=== PATIENT | male | born 1985 | race American Indian/Alaskan Native ===

== ENCOUNTER 2019-12-25 19:45 | Inpatient (IN) | payer OTHER ==
[2019-12-25 20:58] LABS: Basophils % (Auto) 0.4 % (0.0-1.8); Hematocrit 48.5 % (35.5-45.6); Hemoglobin 16.3 gm/dl (11.8-15.2); Lymphocytes # (Auto) 0.9 K/mm3 (1.2-5.4); Lymphocytes % (Auto) 14.9 % (13.4-35.0); Mean Corpuscular HGB Conc 34 % (32-34); Mean Corpuscular Volume 85 fl (84-94); Monocytes # (Auto) 0.3 K/mm3 (0.0-0.8); Monocytes % (Auto) 5.6 % (0.0-7.3); Platelet Count 188 K/mm3 (140-440); Red Cell Distribution Width 13.1 % (13.2-15.2)
--- NOTE | 2019-12-25 21:02 | Emergency Department Report ---
HPI - General Chief Complaint: Fever Time Seen by Provider: 12/25/19 19:57 - HPI HPI: 34-year-old -[place] male presents to the emergency department via EMS from home with a complaint of a dry cough, shortness of breath, intermittent fever that is been going on for the past 1 week. The patient went to see his primary care physician through [facility] last Thursday, 6 days ago, and was diagnosed with pneumonia. He was placed on antibiotics which he has been taking compliantly. However his symptoms have worsened. Patient was found to have a pulse ox of 88% on room air with EMS. He was placed on nasal cannula and brought in to be seen. He denies any cigarette use but occasionally will smoke hookah. He has a past medical history of asthma. No known contacts with any Covid-19 positive people but the patient works for the [employer] and comes into contact with people all day. No recent travel. No sick contacts at home. ED Past Medical Hx - Past Medical History Previous Medical History?: Yes Hx Asthma: Yes - Social History Smoking Status: Never Smoker Substance Use Type: None - Medications Home Medications: Home Medications Medication Instructions Recorded Confirmed Last Taken Type No Known Home Medications [No 12/26/19 12/26/19 Unknown History Reported Home Medications] ED Review of Systems ROS: Stated complaint: JOJO,FEVER,COUGH Other details as noted in HPI Constitutional: chills, fever Eyes: denies: eye pain, vision change ENT: denies: ear pain, throat pain Respiratory: cough, shortness of breath Cardiovascular: denies: chest pain, palpitations Gastrointestinal: denies: abdominal pain, vomiting Genitourinary: denies: dysuria, discharge Musculoskeletal: myalgia. denies: joint swelling Skin: denies: rash, lesions Neurological: denies: weakness, numbness Physical Exam - Physical Exam Vital Signs: Vital Signs 12/25/19 12/25/19 12/25/19 20:03 20:04 20:15 Temperature 99.6 F 100.0 F H Pulse Rate 97 H 99 H 103 H Respiratory 30 H 36 H 33 H Rate Blood Pressure 123/72 [Right] O2 Sat by Pulse 97 97 96 Oximetry 12/25/19 20:31 Temperature Pulse Rate 97 H Respiratory 27 H Rate Blood Pressure [Right] O2 Sat by Pulse 96 Oximetry Physical Exam: GENERAL: The patient is well-developed well-nourished. HENT: Normocephalic. Atraumatic. Patient has moist mucous membranes. EYES: Extraocular motions are intact. NECK: Supple. Trachea is midline. CHEST/LUNGS: Rhonchi heard to the bilateral lung aguilera. There is some tachypnea but no accessory muscle use. HEART/CARDIOVASCULAR: Regular. There is no tachycardia. There is no murmur. ABDOMEN: Abdomen is soft, nontender. Patient has normal bowel sounds. There is no abdominal distention. SKIN: Skin is warm and dry. NEURO: The patient is awake, alert, and oriented. The patient is cooperative. The patient has no focal neurologic deficits. Normal speech. MUSCULOSKELETAL: There is no tenderness or deformity. There is no evidence of acute injury. ED Course Vital Signs 12/25/19 12/25/19 12/25/19 20:03 20:04 20:15 Temperature 99.6 F 100.0 F H Pulse Rate 97 H 99 H 103 H Respiratory 30 H 36 H 33 H Rate Blood Pressure 123/72 [Right] O2 Sat by Pulse 97 97 96 Oximetry 12/25/19 20:31 Temperature Pulse Rate 97 H Respiratory 27 H Rate Blood Pressure [Right] O2 Sat by Pulse 96 Oximetry - Consultations Consultation #1: 12/25/19 22:53 I did speak with Dr[address] Jfefery at the [facility]. She has given permission for the patient to be admitted to our facility. ED Medical Decision Making - Lab Data Result diagrams: 12/26/19 11:35 12/26/19 11:35 - EKG Data -: EKG Interpreted by Ks EKG shows normal: sinus rhythm, axis, intervals, QRS complexes, ST-T waves Rate: normal - EKG Data When compared to previous EKG there are: previous EKG unavailable Interpretation: normal EKG - Radiology Data Radiology results: image reviewed interpreted by me: Chest x-ray shows bilateral groundglass opacities concerning for pneumonia. - Medical Decision Making This patient presents to the emergency department with a low-grade fever, some h ypoxia and progressively worsening shortness of breath after he was diagnosed with pneumonia 6 days ago through his PCP at [facility]. The patient has been taking his antibiotics compliantly. EKG did not show any signs of ST elevation AK or dysrhythmia. Chest x-ray shows bilateral groundglass opacities concerning for pneumonia. His labs thus far have been unremarkable including no leukocytosis, but the patient does have some lymphopenia. Rapid flu is pending. He was given some IV fluid resuscitation and started on some antibiotics and blood cultures have been sent. Given the patient's presentation, the lymphopenia without leukocytosis, and the x-ray findings, the patient has high suspicion for Covid-19. The survey has been filled out for the Department of Health to see if this patient will be tested for the novel coronavirus. The patient did have a pulse ox of about 92 to 93% on room air but goes up to 96 to 97% with 2 L nasal cannula. Patient will be admitted to the hospital for further evaluation and treatment and was accepted for admission by the hospitalist, Dr. Guadalupe. - Differential Diagnosis Covid-19, Community aquired pneumonia, Viral URI, Bronchitis Critical Care Time: Yes Critical care time in (mins) excluding proc time.: 31 Critical care attestation.: If time is entered above; I have spent that time in minutes in the direct care of this critically ill patient, excluding procedure time. Critical care time spent on this patient in doing his initial evaluation, multiple re-evaluations, ordering and interpretation of labs and imaging, treatment with IV fluid resuscitation and IV antibiotics. Critical Care Time: 31 minutes ED Disposition Clinical Impression: Hypoxia, Suspected 2019 novel coronavirus infection Bilateral pneumonia Qualifiers: Pneumonia type: due to unspecified organism Lung location: unspecified part of lung Qualified Code(s): J18.9 - Pneumonia, unspecified organism Dyspnea Qualifiers: Dyspnea type: shortness of breath Qualified Code(s): R06.02 - Shortness of breath Disposition: 09 OP ADMIT IP TO THIS HOSP Is pt being admited?: Yes Condition: Serious Time of Disposition: 21:44
[2019-12-25 21:07] LABS: INR 1.06 (0.87-1.13)
[2019-12-25] MEDS ORDERED: AZITHROMYCIN 500 MG in SODIUM CHLORIDE 0.9% 250ML 250 ML IV ONE (21:10)
[2019-12-25] MEDS ORDERED: cefTRIAXone/NS 1 GM/50 ML 1 GM/50 ML BAG IV ONE (21:10)
[2019-12-25 21:12] LABS: BUN/Creatinine Ratio 9; Blood Urea Nitrogen 13 mg/dL (9-20); Calcium 8.5 mg/dL (8.4-10.2); Hemolysis Index 15
--- NOTE | 2019-12-25 21:21 | XRay Report ---
CHEST 1 VIEW INDICATION / CLINICAL INFORMATION: Dyspnea. COMPARISON: None available. FINDINGS: SUPPORT DEVICES: None. HEART / MEDIASTINUM: No significant abnormality. LUNGS / PLEURA: Patchy bilateral airspace opacities with basilar predominance. No pleural fluid. No p neumothorax. IMPRESSION: Bilateral airspace opacities are suggestive of pneumonia. Signer Name: Tushar Che MD Signed: 12/25/2019 9:17 PM Workstation Name: [id number]
[2019-12-25] MEDS ORDERED: ACETAMINOPHEN 325 MG TAB PO ONE (21:27)
[2019-12-25] MEDS ORDERED: ACETAMINOPHEN 325 MG TAB PO PRN (23:44)
[2019-12-25] MEDS ORDERED: MAGNESIUM HYDROXIDE (MOM) ORAL LIQD UDC PO PRN (23:44)
[2019-12-25] MEDS ORDERED: ONDANSETRON 4 MG/2 ML INJ IV PRN (23:44)
--- NOTE | 2019-12-26 00:35 | History and Physical Report ---
History of Present Illness Date of examination: 12/25/19 Date of admission: 12/25/19 21:45 Chief complaint: Fever Cough Shortness of Breath History of present illness: 34-year-old male presenting to the emergency room today complaining of cough and fever which has been ongoing for about 1 week. He was seen on outpatient basis about 6 days ago at [facility] and was diagnosed with pneumonia. Patient was not placed on hospital admission. 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 He has been having generalized aches and pain, denies any chest pain. He has had some nausea but no vomiting. No abdominal pain. Upon arrival in the emergency room patient was found to be hypoxic with O2 saturation in the upper 80s. Work-up reveals bilateral pneumonia. He has been commenced on empiric IV antibiotics. Past History Past Medical History: other (H/O Asthma) Past Surgical History: No surgical history Social history: no significant social history Medications and Allergies Allergies Allergy/AdvReac Type Severity Reaction Status Date / Time No Known Allergies Allergy Unverified 12/25/19 22:07 Active Meds: Active Medications Acetaminophen (Tylenol) 650 mg PO Q4H PRN PRN Reason: Pain MILD(1-3)/Fever >100.5/SRIVASTAVA Sodium Chloride (Nacl 0.9% 1000 Ml) 1,000 mls @ 125 mls/hr IV DIRECT HUSSEIN Ceftriaxone Sodium (Rocephin/Ns 2 Gm/100 Ml) 2 gm in 100 mls @ 200 mls/hr IV Q24HR HUSSEIN; Protocol Azithromycin 500 mg/ Sodium (Chloride) 250 mls @ 250 mls/hr IV Q24HR HUSSEIN; Protocol Magnesium Hydroxide (Milk Of Magnesia) 30 ml PO Q4H PRN PRN Reason: Constipation Morphine Sulfate (Morphine) 2 mg IV Q4H PRN PRN Reason: Pain, Moderate (4-6) Ondansetron HCl (Zofran) 4 mg IV Q8H PRN PRN Reason: Nausea And Vomiting Sodium Chloride (Sodium Chloride Flush Syringe 10 Ml) 10 ml IV BID HUSSEIN Sodium Chloride (Sodium Chloride Flush Syringe 10 Ml) 10 ml IV PRN PRN PRN Reason: LINE FLUSH Review of Systems Constitutional: no fever, no chills Cardiovascular: no chest pain, no palpitations Respiratory: cough, cough with sputum, shortness of breath Gastrointestinal: nausea, vomiting, no diarrhea Genitourinary Male: no dysuria, no hematuria Musculoskeletal: no neck pain, no low back pain Neurological: no headaches, no confusion Exam - Constitutional Vitals: Temp Pulse Resp BP Pulse Ox 98.7 F 85 29 H 120/66 96 12/25/19 22:53 12/25/19 23:45 12/25/19 23:45 12/25/19 23:45 12/25/19 23:45 General appearance: Present: no acute distress, well-nourished - EENT Eyes: Present: PERRL, EOM intact ENT: hearing intact, clear oral mucosa, dentition normal - Neck Neck: Present: supple, normal ROM - Respiratory Respiratory effort: normal Respiratory: bilateral: diminished - Cardiovascular Rhythm: regular Heart Sounds: Present: S1 & S2 - Extremities Extremities: no ischemia, pulses intact, pulses symmetrical, No edema, Full ROM Peripheral Pulses: within normal limits - Abdominal General gastrointestinal: Present: soft, non-tender, non-distended - Integumentary Integumentary: Present: clear, warm, dry - Musculoskeletal Musculoskeletal: strength equal bilaterally - Psychiatric Psychiatric: appropriate mood/affect, intact judgment & insight, cooperative - Neurologic Neurologic: CNII-XII intact, moves all extremities Results - Labs CBC & Chem 7: 12/25/19 20:32 12/25/19 20:32 Labs: Abnormal lab results 12/25/19 12/25/19 Range/Units 20:32 20:32 RBC 5.70 H (3.65-5.03) M/mm3 Hgb 16.3 H (11.8-15.2) gm/dl Hct 48.5 H (35.5-45.6) % RDW 13.1 L (13.2-15.2) % Lymph # 0.9 L (1.2-5.4) K/mm3 Seg Neutrophils % 79.1 H (40.0-70.0) % Sodium 130 L (137-145) mmol/L Chloride 92.6 L (98-107) mmol/L Carbon Dioxide 20 L (22-30) mmol/L Glucose 113 H (75-100) mg/dL Assessment and Plan - Patient Problems (1) Bilateral pneumonia Current Visit: Yes Status: Acute Qualifiers: Pneumonia type: due to unspecified organism Lung location: unspecified part of lung Qualified Code(s): J18.9 - Pneumonia, unspecified organism Plan to address problem: Placed on empiric IV antibiotics. We await blood culture results (2) Hypoxia Current Visit: Yes Status: Acute Plan to address problem: Possibly secondary to the pneumonia. Will keep O2 saturation greater or equal to 92% (3) Suspected 2019 novel coronavirus infection Current Visit: Yes Status: Acute Plan to address problem: Consult placed to Infectious disease for evaluation and recommendation. Meanwhile continue on I/V antibiotics for pneumonia. (4) DVT prophylaxis Current Visit: Yes Status: Acute Plan to address problem: Patient placed on subcutaneous heparin (5) Full code status Current Visit: Yes Status: Acute
[2019-12-26] MEDS: SODIUM CHLORIDE 0.9% 1000 ML 1,000 ML IV SCH ×2 (02:36→09:46)
[2019-12-26] MEDS: HEPARIN 5,000 UNIT/1 ML VIAL SUB-Q SCH ×3 (05:50→21:50)
[2019-12-26] MEDS: MORPHINE 2 MG/1 ML INJ IV PRN ×3 (05:58→18:14)
[2019-12-26] MEDS: AZITHROMYCIN 500 MG in SODIUM CHLORIDE 0.9% 250ML 250 ML IV SCH (09:34)
[2019-12-26] MEDS: cefTRIAXone/NS 2 GM/100 ML 2 GM/100 ML BAG IV SCH (09:35)
[2019-12-26 12:05] LABS: Basophils % (Auto) 0.2 % (0.0-1.8); Hematocrit 45.3 % (35.5-45.6); Hemoglobin 15.2 gm/dl (11.8-15.2); Lymphocytes # (Auto) 1.2 K/mm3 (1.2-5.4); Lymphocytes % (Auto) 24.1 % (13.4-35.0); Mean Corpuscular HGB Conc 34 % (32-34); Mean Corpuscular Volume 85 fl (84-94); Monocytes # (Auto) 0.4 K/mm3 (0.0-0.8); Monocytes % (Auto) 7.6 % (0.0-7.3); Platelet Count 196 K/mm3 (140-440); Red Blood Count 5.33 M/mm3 (3.65-5.03); Red Cell Distribution Width 13.3 % (13.2-15.2)
[2019-12-26 12:13] LABS: INR 1.03 (0.87-1.13)
[2019-12-26 12:14] LABS: Partial Thromboplastin Time 33.2 Sec. (24.2-36.6)
[2019-12-26 12:24] LABS: BUN/Creatinine Ratio 8; Blood Urea Nitrogen 13 mg/dL (9-20); Calcium 8.1 mg/dL (8.4-10.2); Hemolysis Index 12
--- NOTE | 2019-12-26 14:18 | Consultation ---
History of Present Illness - Reason for Consult Consult date: 12/26/19 - History of Present Illness 34-year-old man past medical history of asthma admitted to the hospital with complaints of fevers and cough. He notes this began approximately a week prior to admission, and was seen as an outpatient at [facility] 6 days prior. At that time he was diagnosed with pneumonia, and was sent home. He complains of associated myalgias and nausea, but denied any vomiting and diarrhea. He was found to be mildly hypoxic in the emergency room, and was admitted. 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 Afebrile since admission with a normal white count and associated lymphopenia. He is currently receiving ceftriaxone and azithromycin. His influenza serologies are negative. Blood cultures are currently pending. Imaging personally reviewed: Chest x-ray: Bilateral airspace opacities. Review of Systems: Bold if positive, otherwise negative General: fevers, chills, rigors HEENT: visual disturbance, diplopia, eye pain Respiratory: cough, sputum, hemoptysis, shortness of breath Cardiovascular: chest pain, syncope Gastrointestinal: nausea, vomiting, diarrhea, abdominal pain Genitourinary: dysuria, hematuria, flank pain Musculoskeletal: neck pain, back pain, joint pain, edema Neurologic: headaches, seizures Hematologic: easy bruising or bleeding Endocrine: night sweats, acute weight loss Skin: rash, jaundice, redness Psychiatric: suicidal, homicidal ideation Past History Past Medical History: other (H/O Asthma) Past Surgical History: No surgical history Social history: no significant social history Medications and Allergies Allergies Allergy/AdvReac Type Severity Reaction Status Date / Time No Known Allergies Allergy Unverified 12/25/19 22:07 Home Medications Medication Instructions Recorded Confirmed Last Taken Type No Known Home Medications [No 12/26/19 12/26/19 Unknown History Reported Home Medications] Active Meds: Active Medications Acetaminophen (Tylenol) 650 mg PO Q4H PRN PRN Reason: Pain MILD(1-3)/Fever >100.5/SRIVASTAVA Heparin Sodium (Porcine) (Heparin) 5,000 unit SUB-Q Q8HR HUSSEIN Last Admin: 12/26/19 13:21 Dose: Not Given Documented by: Sodium Chloride (Nacl 0.9% 1000 Ml) 1,000 mls @ 125 mls/hr IV DIRECT HUSSEIN Last Admin: 12/26/19 09:46 Dose: 125 mls/hr Documented by: Ceftriaxone Sodium (Rocephin/Ns 2 Gm/100 Ml) 2 gm in 100 mls @ 200 mls/hr IV Q24HR HUSSEIN; Protocol Last Admin: 12/26/19 09:35 Dose: 200 mls/hr Documented by: Azithromycin 500 mg/ Sodium (Chloride) 250 mls @ 250 mls/hr IV Q24HR HUSSEIN; Protocol Last Admin: 12/26/19 09:34 Dose: 250 mls/hr Documented by: Magnesium Hydroxide (Milk Of Magnesia) 30 ml PO Q4H PRN PRN Reason: Constipation Morphine Sulfate (Morphine) 2 mg IV Q4H PRN PRN Reason: Pain, Moderate (4-6) Last Admin: 12/26/19 10:43 Dose: 2 mg Documented by: Ondansetron HCl (Zofran) 4 mg IV Q8H PRN PRN Reason: Nausea And Vomiting Sodium Chloride (Sodium Chloride Flush Syringe 10 Ml) 10 ml IV BID HUSSEIN Last Admin: 12/26/19 09:35 Dose: 10 ml Documented by: Sodium Chloride (Sodium Chloride Flush Syringe 10 Ml) 10 ml IV PRN PRN PRN Reason: LINE FLUSH Physical Examination - Physical Exam Narrative exam: Physical Exam: Constitutional: Alert, cooperative. No acute distress Head, Ears, Nose: Normocephalic, atraumatic. External ears, nose normal Eyes: Conjunctivae/corneas clear. No icterus. No ptosis. Neck: Supple, no meningeal signs Oral: dentition fair, no thrush Cardiovascular: S1, S2 normal. Respiratory: Mild bilateral rhonchi GI: Soft, non-tender; bowel sounds normal. No peritoneal signs. Musculoskeletal: No pedal edema, no cyanosis. Skin: No rash or abscess Hem/Lymphatic: No palpable cervical or supraclavicular nodes. No lymphangitis Psych: Mood ok. Affect normal Neurological: Awake, alert, oriented. No gross abnormality - Constitutional Vitals: Vital Signs Temp Pulse Resp BP Pulse Ox 99.7 F H 83 20 112/66 93 12/26/19 12:06 12/26/19 12:06 12/26/19 12:06 12/26/19 12:06 12/26/19 12:06 Temperature -Last 24 Hours Temperature 99.7 F Temperature 98.9 F Temperature 98.7 F Temperature 100.0 F Temperature 99.6 F Results - Labs CBC & Chem 7: 12/26/19 11:35 12/26/19 11:35 Labs: Abnormal lab results 12/25/19 12/25/19 12/26/19 Range/Units 20:32 20:32 11:35 RBC 5.70 H 5.33 H (3.65-5.03) M/mm3 Hgb 16.3 H (11.8-15.2) gm/dl Hct 48.5 H (35.5-45.6) % RDW 13.1 L (13.2-15.2) % [place] % (Auto) 7.6 H (0.0-7.3) % Lymph # 0.9 L (1.2-5.4) K/mm3 Seg Neutrophils % 79.1 H (40.0-70.0) % Sodium 130 L (137-145) mmol/L Chloride 92.6 L (98-107) mmol/L Carbon Dioxide 20 L (22-30) mmol/L Creatinine (0.8-1.5) mg/dL Glucose 113 H (75-100) mg/dL Calcium (8.4-10.2) mg/dL 12/26/19 Range/Units 11:35 RBC (3.65-5.03) M/mm3 Hgb (11.8-15.2) gm/dl Hct (35.5-45.6) % RDW (13.2-15.2) % [place] % (Auto) (0.0-7.3) % Lymph # (1.2-5.4) K/mm3 Seg Neutrophils % (40.0-70.0) % Sodium 132 L (137-145) mmol/L Chloride 95.7 L (98-107) mmol/L Carbon Dioxide (22-30) mmol/L Creatinine 1.6 H (0.8-1.5) mg/dL Glucose 103 H (75-100) mg/dL Calcium 8.1 L (8.4-10.2) mg/dL Assessment and Plan Cultures: Blood culture 12/25/2019 blood cultures no growth to date A/P: 34-year-old man past medical history asthma admitted to the hospital with pneumonia and concern for COVID-19. #COVID-19 rule out: Survey filled out by emergency room, follow-up testing and results. Continue empiric antibiotics for now with ceftriaxone and azithromycin. Patient was symptoms nonresponsive to antibiotics with a normal white count with lymphopenia, and bilateral disease yields concern for COVID-19 #Bilateral pneumonia: Order procalcitonin for a.m. labs. #Asthma: Pulmonary comorbidity increases risk factors for severe COVID-19 disease, as such monitor closely. Recs: -Continue empiric ceftriaxone and azithromycin -Ordered procalcitonin for morning labs -Follow-up code testing from department of health - Patient may be discharged when medically stable if testing swabs have been obt ained. Upon discharge patient should self-quarantine at home until COVID testing returns. If negative, self-quarantine may end. If positive patient should self- quarantine for 14 days from symptom beginning. Public health and infection prevention will follow up with patients to notify them of their test results. Patients should return to hospital regardless if they have worsening fevers or respiratory status. Thank you for the consult, will continue to follow Nessa Solis MD [facility] ([facility] M: [phone] O: [phone] F: [phone]
--- NOTE | 2019-12-26 15:37 | Progress Note ---
Assessment and Plan (1) Bilateral pneumonia Current Visit: Yes Status: Acute Qualifiers: Pneumonia type: due to unspecified organism Lung location: unspecified part of lung Qualified Code(s): J18.9 - Pneumonia, unspecified organism Plan to address problem: Placed on empiric IV antibiotics. We await blood culture results (2) Hypoxia Current Visit: Yes Status: Acute Plan to address problem: Possibly secondary to the pneumonia. Will keep O2 saturation greater or equal to 92% (3) Suspected 2019 novel coronavirus infection Current Visit: Yes Status: Acute Plan to address problem: Consult placed to Infectious disease for evaluation and recommendation. Meanwhile continue on I/V antibiotics for pneumonia. (4) DVT prophylaxis Current Visit: Yes Status: Acute Plan to address problem: Patient placed on subcutaneous heparin (5) Full code status Current Visit: Yes Status: Acute Subjective Date of service: 12/26/19 Principal diagnosis: Bilateral pneumonia Interval history: 34-year-old male presenting to the emergency room today complaining of cough and fever which has been ongoing for about 1 week. He was seen on outpatient basis about 6 days ago at [place] and was diagnosed with pneumonia. Patient was not placed on hospital admission. 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 He has been having generalized aches and pain, denies any chest pain. He has had some nausea but no vomiting. No abdominal pain. Upon arrival in the emergency room patient was found to be hypoxic with O2 saturation in the upper 80s. Work-up reveals bilateral pneumonia. He has been commenced on empiric IV antibiotics. Symptomatically same Objective - Constitutional Vitals: Vital Signs - 12hr 12/26/19 12/26/19 12/26/19 05:31 10:00 12:06 Temperature 98.9 F 99.7 F H Pulse Rate 88 83 Respiratory 18 20 Rate Blood Pressure 116/61 112/66 O2 Sat by Pulse 93 94 93 Oximetry General appearance: Present: mild distress, well-nourished - EENT Eyes: PERRL, EOM intact ENT: hearing intact, clear oral mucosa Ears: bilateral: normal - Neck Neck: supple, normal ROM - Respiratory Respiratory effort: normal Respiratory: bilateral: CTA - Breasts Breasts: normal - Cardiovascular Heart rate: 88 Rhythm: regular Heart Sounds: Present: S1 & S2. Absent: gallop, rub Extremities: pulses intact, No edema, normal color, Full ROM - Gastrointestinal General gastrointestinal: Present: soft, non-tender, non-distended, normal bowel sounds - Genitourinary Male genitourinary: normal - Integumentary Integumentary: clear, warm, dry - Musculoskeletal Musculoskeletal: 1, strength equal bilaterally - Neurologic Neurologic: moves all extremities - Psychiatric Psychiatric: memory intact, appropriate mood/affect, intact judgment & insight - Labs CBC & Chem 7: 12/26/19 11:35 12/26/19 11:35 Labs: Abnormal lab results 12/25/19 12/25/19 12/26/19 Range/Units 20:32 20:32 11:35 RBC 5.70 H 5.33 H (3.65-5.03) M/mm3 Hgb 16.3 H (11.8-15.2) gm/dl Hct 48.5 H (35.5-45.6) % RDW 13.1 L (13.2-15.2) % [place] % (Auto) 7.6 H (0.0-7.3) % Lymph # 0.9 L (1.2-5.4) K/mm3 Seg Neutrophils % 79.1 H (40.0-70.0) % Sodium 130 L (137-145) mmol/L Chloride 92.6 L (98-107) mmol/L Carbon Dioxide 20 L (22-30) mmol/L Creatinine (0.8-1.5) mg/dL Glucose 113 H (75-100) mg/dL Calcium (8.4-10.2) mg/dL 12/26/19 Range/Units 11:35 RBC (3.65-5.03) M/mm3 Hgb (11.8-15.2) gm/dl Hct (35.5-45.6) % RDW (13.2-15.2) % [place] % (Auto) (0.0-7.3) % Lymph # (1.2-5.4) K/mm3 Seg Neutrophils % (40.0-70.0) % Sodium 132 L (137-145) mmol/L Chloride 95.7 L (98-107) mmol/L Carbon Dioxide (22-30) mmol/L Creatinine 1.6 H (0.8-1.5) mg/dL Glucose 103 H (75-100) mg/dL Calcium 8.1 L (8.4-10.2) mg/dL
[2019-12-27] MEDS: SODIUM CHLORIDE 0.9% 1000 ML 1,000 ML IV SCH ×2 (01:55→10:27)
[2019-12-27] MEDS: HEPARIN 5,000 UNIT/1 ML VIAL SUB-Q SCH ×3 (05:28→21:01)
[2019-12-27] MEDS: AZITHROMYCIN 500 MG in SODIUM CHLORIDE 0.9% 250ML 250 ML IV SCH (09:19)
[2019-12-27] MEDS: cefTRIAXone/NS 2 GM/100 ML 2 GM/100 ML BAG IV SCH (10:18)
--- NOTE | 2019-12-27 13:17 | Progress Note ---
Assessment and Plan Cultures: Blood culture 12/25/2019 blood cultures no growth to date A/P: 34-year-old man past medical history asthma admitted to the hospital with pneumonia and concern for COVID-19. #COVID-19 rule out: Survey filled out by emergency room, follow-up testing and results. Continue empiric antibiotics for now with ceftriaxone and azithrom ycin. Patient was symptoms nonresponsive to antibiotics with a normal white count with lymphopenia, and bilateral disease yields concern for COVID-19 #Bilateral pneumonia: Order procalcitonin for a.m. labs. #Asthma: Pulmonary comorbidity increases risk factors for severe COVID-19 disease, as such monitor closely. Recs: -Continue empiric ceftriaxone and azithromycin -Ordered procalcitonin for morning labs = normal, furthering suspicion of COVID- 19 -Follow-up COVID-19 testing from department of health - Patient may be discharged when medically stable if testing swabs have been obtained. Upon discharge patient should self-quarantine at home until COVID testing returns. If negative, self-quarantine may end. If positive patient should self-quarantine for 14 days from symptom beginning. Public health and infection prevention will follow up with patients to notify them of their test results. Patients should return to hospital regardless if they have worsening fevers or respiratory status. Thank you for the consult, will continue to follow Nessa Solis MD [facility] M: [phone] O: [phone] F: [phone] Subjective Date of service: 12/27/19 Principal diagnosis: Bilateral pneumonia Interval history: Tmax 100.2, normal white count. No new issues. Objective - Exam Narrative Exam: Physical Exam: Constitutional: Alert, cooperative. No acute distress Eyes: Conjunctivae/corneas clear. No icterus. No ptosis. Neck: Supple, no meningeal signs Oral: dentition fair, no thrush Cardiovascular: S1, S2 normal. Respiratory: Mild bilateral wheeze GI: Soft, non-tender; bowel sounds normal. No peritoneal signs. Musculoskeletal: No pedal edema, no cyanosis. Skin: No rash or abscess Hem/Lymphatic: No palpable cervical or supraclavicular nodes. No lymphangitis Psych: Mood ok. Affect normal Neurological: Awake, alert, oriented. No gross abnormality - Constitutional Vitals: Vital Signs Temp Pulse Resp BP Pulse Ox 99.5 F 83 20 116/58 94 12/27/19 04:28 12/27/19 10:23 12/27/19 04:28 12/27/19 10:23 12/27/19 10:23 Temperature -Last 24 Hours Temperature 99.5 F Temperature 100.2 F Temperature 99.4 F - Labs CBC & Chem 7: 12/26/19 11:35 12/26/19 11:35
[2019-12-27] MEDS: MORPHINE 2 MG/1 ML INJ IV PRN (16:18)
--- NOTE | 2019-12-27 19:27 | Progress Note ---
Assessment and Plan Assessment and plan: --Acute kidney injury; secondary to ATN, gentle hydration Avoid nephrotoxin, monitor renal function Consult nephrology if no improvement. --Hyponatremia; Closely monitor electrolytes, replacement therapy -- Bilateral pneumonia Current Visit: Yes Status: Acute Placed on empiric IV antibiotics. We await blood culture results -- Hypoxia Current Visit: Yes Status: Acute Possibly secondary to the pneumonia. Will keep O2 saturation greater or equal to 92% -- Suspected, r/o Covid 19 Current Visit: Yes Status: Acute Consult placed to Infectious disease for evaluation and recommendation. Meanwhile continue on I/V antibiotics for pneumonia. --DVT prophylaxis Current Visit: Yes Status: Acute Patient placed on subcutaneous heparin --Full code status Current Visit: Yes Status: Acute Monitor closely and adjust management as needed History Interval history: Patient seen and examined at the bedside in isolation room Patient's chart imaging studies consultants recommendations Tests reviewed Patient complains of some dry cough Generalized body pains Alert awake oriented Vital signs reviewed Hospitalist Physical - Constitutional Vitals: Temp Pulse Resp BP Pulse Ox 98.6 F 75 17 116/71 91 12/27/19 12:02 12/27/19 16:16 12/27/19 16:48 12/27/19 16:16 12/27/19 16:16 General appearance: Present: mild distress, well-nourished - EENT Eyes: Present: PERRL, EOM intact - Neck Neck: Present: supple, normal ROM - Respiratory Respiratory effort: normal Respiratory: bilateral: diminished, rhonchi, negative: rales, wheezing - Cardiovascular Rhythm: regular Heart Sounds: Present: S1 & S2 - Extremities Extremities: no ischemia, No edema - Abdominal General gastrointestinal: soft, non-tender, non-distended, normal bowel sounds - Integumentary Integumentary: Present: clear, warm - Psychiatric Psychiatric: appropriate mood/affect, cooperative - Neurologic Neurologic: CNII-XII intact, moves all extremities Results - Labs CBC & Chem 7: 12/26/19 11:35 12/26/19 11:35 Labs: Laboratory Last Values WBC 4.9 K/mm3 (4.5-11.0) 12/26/19 11:35 RBC 5.33 M/mm3 (3.65-5.03) H 12/26/19 11:35 Hgb 15.2 gm/dl (11.8-15.2) 12/26/19 11:35 Hct 45.3 % (35.5-45.6) 12/26/19 11:35 MCV 85 fl (84-94) 12/26/19 11:35 MCH 29 pg (28-32) 12/26/19 11:35 MCHC 34 % (32-34) 12/26/19 11:35 RDW 13.3 % (13.2-15.2) 12/26/19 11:35 Plt Count 196 K/mm3 (140-440) 12/26/19 11:35 Lymph % (Auto) 24.1 % (13.4-35.0) 12/26/19 11:35 [place] % (Auto) 7.6 % (0.0-7.3) H 12/26/19 11:35 Eos % (Auto) 0.0 % (0.0-4.3) 12/26/19 11:35 Baso % (Auto) 0.2 % (0.0-1.8) 12/26/19 11:35 Lymph # 1.2 K/mm3 (1.2-5.4) 12/26/19 11:35 [place] # 0.4 K/mm3 (0.0-0.8) 12/26/19 11:35 Eos # 0.0 K/mm3 (0.0-0.4) 12/26/19 11:35 Baso # 0.0 K/mm3 (0.0-0.1) 12/26/19 11:35 Seg Neutrophils % 68.1 % (40.0-70.0) 12/26/19 11:35 Seg Neutrophils # 3.3 K/mm3 (1.8-7.7) 12/26/19 11:35 PT 13.6 Sec. (12.2-14.9) 12/26/19 11:35 INR 1.03 (0.87-1.13) 12/26/19 11:35 APTT 33.2 Sec. (24.2-36.6) 12/26/19 11:35 Sodium 132 mmol/L (137-145) L 12/26/19 11:35 Potassium 4.3 mmol/L (3.6-5.0) 12/26/19 11:35 Chloride 95.7 mmol/L (98-107) L 12/26/19 11:35 Carbon Dioxide 23 mmol/L (22-30) 12/26/19 11:35 Anion Gap 18 mmol/L 12/26/19 11:35 BUN 13 mg/dL (9-20) 12/26/19 11:35 Creatinine 1.6 mg/dL (0.8-1.5) H 12/26/19 11:35 Estimated GFR > 60 ml/min 12/26/19 11:35 BUN/Creatinine Ratio 8 % 12/26/19 11:35 Glucose 103 mg/dL (75-100) H 12/26/19 11:35 Calcium 8.1 mg/dL (8.4-10.2) L 12/26/19 11:35 NT-Pro-B Natriuret Pep 16.55 pg/mL (0-450) 12/25/19 20:32 Procalcitonin 0.09 ng/mL (<0.15) 12/27/19 07:14 Influenza A (Rapid) Negative (Negative) 12/25/19 23:00 Influenza B (Rapid) Negative (Negative) 12/25/19 23:00 Microbiology: Microbiology 12/25/19 20:32 Peripheral/Venous Blood Culture - Preliminary NO GROWTH AFTER 24 HOURS 12/25/19 20:32 Peripheral/Venous Blood Culture - Preliminary NO GROWTH AFTER 24 HOURS Franco/IV: Voiding Method Toilet IV Catheter Type [Left INT / Saline Lock Antecubital] Active Medications - Current Medications Current Medications: Generic Name Dose Route Start Last Admin Trade Name Freq PRN Reason Stop Dose Admin Acetaminophen 650 mg 12/25/19 23:44 Tylenol PO Q4H PRN Pain MILD(1-3)/Fever >100.5/SRIVASTAVA Heparin Sodium (Porcine) 5,000 unit 12/26/19 06:00 12/27/19 13:22 Heparin SUB-Q Not Given Q8HR HUSSEIN Sodium Chloride 1,000 mls @ 125 mls/hr 12/25/19 23:45 12/27/19 10:27 Nacl 0.9% 1000 Ml IV 125 mls/hr DIRECT HUSSEIN Administration Ceftriaxone Sodium 2 gm in 100 mls @ 200 mls/hr 12/26/19 10:00 12/27/19 10:18 Rocephin/Ns 2 Gm/100 Ml IV 200 mls/hr Q24HR HUSSEIN Administration Protocol Azithromycin 500 mg/ Sodium 250 mls @ 250 mls/hr 12/26/19 10:00 12/27/19 09:19 Chloride IV 250 mls/hr Q24HR HUSSEIN Administration Protocol Magnesium Hydroxide 30 ml 12/25/19 23:44 Milk Of Magnesia PO Q4H PRN Constipation Morphine Sulfate 2 mg 12/25/19 23:44 12/27/19 16:18 Morphine IV 2 mg Q4H PRN Administration Pain, Moderate (4-6) Ondansetron HCl 4 mg 12/25/19 23:44 Zofran IV Q8H PRN Nausea And Vomiting Sodium Chloride 10 ml 12/26/19 10:00 12/27/19 10:19 Sodium Chloride Flush Syringe 10 Ml IV 10 ml BID HUSSEIN Administration Sodium Chloride 10 ml 12/25/19 23:44 Sodium Chloride Flush Syringe 10 Ml IV PRN PRN LINE FLUSH
[2019-12-28] MEDS: MORPHINE 2 MG/1 ML INJ IV PRN ×2 (00:53→17:29)
[2019-12-28] MEDS: SODIUM CHLORIDE 0.9% 1000 ML 1,000 ML IV SCH (00:59)
[2019-12-28] MEDS: HEPARIN 5,000 UNIT/1 ML VIAL SUB-Q SCH ×4 (05:04→22:22)
--- NOTE | 2019-12-28 09:14 | Progress Note ---
Assessment and Plan Assessment and plan: Covid 19 survey was sent out to health department by ER physician -- Suspected, r/o Covid 19 Current Visit: Yes Status: Acute Consult placed to Infectious disease for evaluation and recommendation. Meanwhile continue on I/V antibiotics for pneumonia. ID following --Acute kidney injury; secondary to ATN, gentle hydration, resolved Avoid nephrotoxin, monitor renal function Consult nephrology if no improvement. --Hyponatremia; Closely monitor electrolytes, replacement therapy -- Bilateral pneumonia Current Visit: Yes Status: Acute Continue empiric IV antibiotics. Follow cultures -- Hypoxia Current Visit: Yes Status: Acute Possibly secondary to the pneumonia. Will keep O2 saturation greater or equal to 92% --DVT prophylaxis Current Visit: Yes Status: Acute Patient placed on subcutaneous heparin --Full code status Current Visit: Yes Status: Acute Monitor closely and adjust management as needed Plan of care reviewed with the patient and his nurse Patient in isolation History Interval history: Patient seen and examined at the bedside this afternoon Patient's chart medications reviewed Patient feels slightly better complains of generalized weakness and fatigue Alert awake oriented Vital signs reviewed Hospitalist Physical - Constitutional Vitals: Temp Pulse Resp BP Pulse Ox 99.8 F H 79 20 112/62 95 12/28/19 04:35 12/28/19 04:35 12/28/19 04:35 12/28/19 04:35 12/28/19 04:35 General appearance: Present: mild distress, well-nourished - EENT Eyes: Present: PERRL, EOM intact - Neck Neck: Present: supple, normal ROM - Respiratory Respiratory effort: normal Respiratory: bilateral: diminished, negative: rales, rhonchi, wheezing - Cardiovascular Rhythm: regular Heart Sounds: Present: S1 & S2 - Extremities Extremities: no ischemia, No edema - Abdominal General gastrointestinal: soft, non-tender, non-distended, normal bowel sounds - Integumentary Integumentary: Present: clear, warm - Psychiatric Psychiatric: appropriate mood/affect, cooperative - Neurologic Neurologic: CNII-XII intact, moves all extremities Results - Labs CBC & Chem 7: 12/26/19 11:35 12/28/19 10:41 Labs: Laboratory Last Values WBC 4.9 K/mm3 (4.5-11.0) 12/26/19 11:35 RBC 5.33 M/mm3 (3.65-5.03) H 12/26/19 11:35 Hgb 15.2 gm/dl (11.8-15.2) 12/26/19 11:35 Hct 45.3 % (35.5-45.6) 12/26/19 11:35 MCV 85 fl (84-94) 12/26/19 11:35 MCH 29 pg (28-32) 12/26/19 11:35 MCHC 34 % (32-34) 12/26/19 11:35 RDW 13.3 % (13.2-15.2) 12/26/19 11:35 Plt Count 196 K/mm3 (140-440) 12/26/19 11:35 Lymph % (Auto) 24.1 % (13.4-35.0) 12/26/19 11:35 [place] % (Auto) 7.6 % (0.0-7.3) H 12/26/19 11:35 Eos % (Auto) 0.0 % (0.0-4.3) 12/26/19 11:35 Baso % (Auto) 0.2 % (0.0-1.8) 12/26/19 11:35 Lymph # 1.2 K/mm3 (1.2-5.4) 12/26/19 11:35 [place] # 0.4 K/mm3 (0.0-0.8) 12/26/19 11:35 Eos # 0.0 K/mm3 (0.0-0.4) 12/26/19 11:35 Baso # 0.0 K/mm3 (0.0-0.1) 12/26/19 11:35 Seg Neutrophils % 68.1 % (40.0-70.0) 12/26/19 11:35 Seg Neutrophils # 3.3 K/mm3 (1.8-7.7) 12/26/19 11:35 PT 13.6 Sec. (12.2-14.9) 12/26/19 11:35 INR 1.03 (0.87-1.13) 12/26/19 11:35 APTT 33.2 Sec. (24.2-36.6) 12/26/19 11:35 Sodium 132 mmol/L (137-145) L 12/26/19 11:35 Potassium 4.3 mmol/L (3.6-5.0) 12/26/19 11:35 Chloride 95.7 mmol/L (98-107) L 12/26/19 11:35 Carbon Dioxide 23 mmol/L (22-30) 12/26/19 11:35 Anion Gap 18 mmol/L 12/26/19 11:35 BUN 13 mg/dL (9-20) 12/26/19 11:35 Creatinine 1.6 mg/dL (0.8-1.5) H 12/26/19 11:35 Estimated GFR > 60 ml/min 12/26/19 11:35 BUN/Creatinine Ratio 8 % 12/26/19 11:35 Glucose 103 mg/dL (75-100) H 12/26/19 11:35 Calcium 8.1 mg/dL (8.4-10.2) L 12/26/19 11:35 NT-Pro-B Natriuret Pep 16.55 pg/mL (0-450) 12/25/19 20:32 Procalcitonin 0.09 ng/mL (<0.15) 12/27/19 07:14 Influenza A (Rapid) Negative (Negative) 12/25/19 23:00 Influenza B (Rapid) Negative (Negative) 12/25/19 23:00 Microbiology: Microbiology 12/25/19 20:32 Peripheral/Venous Blood Culture - Preliminary NO GROWTH AFTER 48 HOURS 12/25/19 20:32 Peripheral/Venous Blood Culture - Preliminary NO GROWTH AFTER 48 HOURS Franco/IV: Voiding Method Toilet IV Catheter Type [Left INT / Saline Lock Antecubital] Active Medications - Current Medications Current Medications: Generic Name Dose Route Start Last Admin Trade Name Freq PRN Reason Stop Dose Admin Acetaminophen 650 mg 12/25/19 23:44 Tylenol PO Q4H PRN Pain MILD(1-3)/Fever >100.5/SRIVASTAVA Heparin Sodium (Porcine) 5,000 unit 12/26/19 06:00 12/28/19 05:04 Heparin SUB-Q Not Given Q8HR HUSSEIN Sodium Chloride 1,000 mls @ 125 mls/hr 12/25/19 23:45 12/28/19 00:59 Nacl 0.9% 1000 Ml IV 125 mls/hr DIRECT HUSSEIN Administration Ceftriaxone Sodium 2 gm in 100 mls @ 200 mls/hr 12/26/19 10:00 12/27/19 10:18 Rocephin/Ns 2 Gm/100 Ml IV 200 mls/hr Q24HR HUSSEIN Administration Protocol Azithromycin 500 mg/ Sodium 250 mls @ 250 mls/hr 12/26/19 10:00 12/27/19 09:19 Chloride IV 250 mls/hr Q24HR HUSSEIN Administration Protocol Magnesium Hydroxide 30 ml 12/25/19 23:44 Milk Of Magnesia PO Q4H PRN Constipation Morphine Sulfate 2 mg 12/25/19 23:44 12/28/19 00:53 Morphine IV 2 mg Q4H PRN Administration Pain, Moderate (4-6) Ondansetron HCl 4 mg 12/25/19 23:44 Zofran IV Q8H PRN Nausea And Vomiting Sodium Chloride 10 ml 12/26/19 10:00 12/27/19 22:28 Sodium Chloride Flush Syringe 10 Ml IV Not Given BID HUSSEIN Sodium Chloride 10 ml 12/25/19 23:44 Sodium Chloride Flush Syringe 10 Ml IV PRN PRN LINE FLUSH
[2019-12-28] MEDS: cefTRIAXone/NS 2 GM/100 ML 2 GM/100 ML BAG IV SCH (09:29)
[2019-12-28] MEDS: AZITHROMYCIN 500 MG in SODIUM CHLORIDE 0.9% 250ML 250 ML IV SCH (09:29)
[2019-12-28 11:43] LABS: BUN/Creatinine Ratio 7; Blood Urea Nitrogen 8 mg/dL (9-20); Calcium 8.2 mg/dL (8.4-10.2); Hemolysis Index 5
[2019-12-29] MEDS: HEPARIN 5,000 UNIT/1 ML VIAL SUB-Q SCH ×3 (05:25→22:39)
[2019-12-29] MEDS: SODIUM CHLORIDE 0.9% 1000 ML 1,000 ML IV SCH ×2 (05:36→22:39)
[2019-12-29] MEDS: cefTRIAXone/NS 2 GM/100 ML 2 GM/100 ML BAG IV SCH (09:49)
[2019-12-29] MEDS ORDERED: AZITHROMYCIN 250 MG TAB PO SCH (10:00)
--- NOTE | 2019-12-29 13:38 | Progress Note ---
Assessment and Plan Cultures: Blood culture 12/25/2019 blood cultures no growth to date A/P: 34-year-old man past medical history asthma admitted to the hospital with pneumonia and concern for COVID-19. #COVID-19 rule out: Survey filled out by emergency room, follow-up testing and results. Continue empiric antibiotics for now with ceftriaxone and azithrom ycin. Patient was symptoms nonresponsive to antibiotics with a normal white count with lymphopenia, and bilateral disease yields concern for COVID-19 #Bilateral pneumonia: Continue empiric antibiotics. #Asthma: Pulmonary comorbidity increases risk factors for severe COVID-19 disease, as such monitor closely. Recs: -Continue empiric ceftriaxone and azithromycin. Stop date 12/30/2019. If discha rging prior to completion of IV antibiotics would send with cefdinir 300mg q12h to complete to the same stop date. -Follow-up COVID-19 testing from department of health - Patient may be discharged when medically stable if testing swabs have been obtained. Upon discharge patient should self-quarantine at home until COVID testing returns. If negative, self-quarantine may end. If positive patient s hould self-quarantine for 14 days from symptom beginning. Public health and infection prevention will follow up with patients to notify them of their test results. Patients should return to hospital regardless if they have worsening fevers or respiratory status. Thank you for the consult, will sign off in light of the patient's stability. Please call us back if he decompensates or if any new questions arise. Nessa Solis MD [facility] ([facility] M: [phone] O: [phone] F: [phone] Subjective Date of service: 12/29/19 Principal diagnosis: Bilateral pneumonia Interval history: Patient feels somewhat improved. Afebrile, normal white count. Objective - Exam Narrative Exam: Physical Exam: Constitutional: Alert, cooperative. No acute distress Neck: Supple, no meningeal signs Oral: dentition fair, no thrush Cardiovascular: S1, S2 normal. Respiratory: Mild bilateral wheeze GI: Soft, non-tender; bowel sounds normal. No peritoneal signs. Musculoskeletal: No pedal edema, no cyanosis. Skin: No rash or abscess Hem/Lymphatic: No palpable cervical or supraclavicular nodes. No lymphangitis Psych: Mood ok. Affect normal Neurological: Awake, alert, oriented. No gross abnormality - Constitutional Vitals: Vital Signs Temp Pulse Resp BP Pulse Ox 97.5 F L 96 H 20 131/76 92 12/29/19 12:06 12/29/19 12:06 12/29/19 12:06 12/29/19 12:06 12/29/19 12:06 Temperature -Last 24 Hours Temperature 97.5 F Temperature 98.6 F Temperature 98.3 F - Labs CBC & Chem 7: 12/26/19 11:35 12/28/19 10:41
--- NOTE | 2019-12-29 19:07 | Progress Note ---
Assessment and Plan Assessment and plan: Covid 19 survey was sent out to health department by ER physician -- Bilateral pneumonia Current Visit: Yes Status: Acute Continue empiric IV antibiotics. Follow cultures -- Suspected, r/o Covid 19 Current Visit: Yes Status: Acute ID evaluated the patient , call with test sent Pending report --Acute kidney injury; secondary to ATN, gentle hydration, resolved Avoid nephrotoxin, monitor renal function Consult nephrology if no improvement. --Hyponatremia; Closely monitor electrolytes, replacement therapy -- Hypoxia Current Visit: Yes Status: Acute Possibly secondary to the pneumonia. Will keep O2 saturation greater or equal to 92% --DVT prophylaxis Current Visit: Yes Status: Acute Patient placed on subcutaneous heparin --Full code status Current Visit: Yes Status: Acute Monitor closely and adjust management as needed Plan of care reviewed with the patient and his nurse Patient in isolation, possible discharge in 1 to 2 days if stable History Interval history: Patient seen and examined at the bedside in isolated room this afternoon Patient's chart, tests, consults recommendations reviewed Patient feels slightly better still has some shortness of breath and cough Alert and awake, in mild distress Vital signs reviewed Hospitalist Physical - Constitutional Vitals: Temp Pulse Resp BP Pulse Ox 97.5 F L 96 H 20 131/76 92 12/29/19 12:06 12/29/19 12:06 12/29/19 12:06 12/29/19 12:06 12/29/19 12:06 General appearance: Present: mild distress, well-nourished - EENT Eyes: Present: PERRL, EOM intact - Neck Neck: Present: supple, normal ROM - Respiratory Respiratory effort: normal Respiratory: bilateral: diminished, rhonchi, negative: rales, wheezing - Cardiovascular Rhythm: regular Heart Sounds: Present: S1 & S2 - Extremities Extremities: no ischemia, No edema - Abdominal General gastrointestinal: soft, non-tender, non-distended, normal bowel sounds - Integumentary Integumentary: Present: clear, warm - Psychiatric Psychiatric: appropriate mood/affect, cooperative - Neurologic Neurologic: moves all extremities Results - Labs CBC & Chem 7: 12/26/19 11:35 12/28/19 10:41 Labs: Laboratory Last Values WBC 4.9 K/mm3 (4.5-11.0) 12/26/19 11:35 RBC 5.33 M/mm3 (3.65-5.03) H 12/26/19 11:35 Hgb 15.2 gm/dl (11.8-15.2) 12/26/19 11:35 Hct 45.3 % (35.5-45.6) 12/26/19 11:35 MCV 85 fl (84-94) 12/26/19 11:35 MCH 29 pg (28-32) 12/26/19 11:35 MCHC 34 % (32-34) 12/26/19 11:35 RDW 13.3 % (13.2-15.2) 12/26/19 11:35 Plt Count 196 K/mm3 (140-440) 12/26/19 11:35 Lymph % (Auto) 24.1 % (13.4-35.0) 12/26/19 11:35 [place] % (Auto) 7.6 % (0.0-7.3) H 12/26/19 11:35 Eos % (Auto) 0.0 % (0.0-4.3) 12/26/19 11:35 Baso % (Auto) 0.2 % (0.0-1.8) 12/26/19 11:35 Lymph # 1.2 K/mm3 (1.2-5.4) 12/26/19 11:35 [place] # 0.4 K/mm3 (0.0-0.8) 12/26/19 11:35 Eos # 0.0 K/mm3 (0.0-0.4) 12/26/19 11:35 Baso # 0.0 K/mm3 (0.0-0.1) 12/26/19 11:35 Seg Neutrophils % 68.1 % (40.0-70.0) 12/26/19 11:35 Seg Neutrophils # 3.3 K/mm3 (1.8-7.7) 12/26/19 11:35 PT 13.6 Sec. (12.2-14.9) 12/26/19 11:35 INR 1.03 (0.87-1.13) 12/26/19 11:35 APTT 33.2 Sec. (24.2-36.6) 12/26/19 11:35 Sodium 135 mmol/L (137-145) L 12/28/19 10:41 Potassium 4.1 mmol/L (3.6-5.0) 12/28/19 10:41 Chloride 100.0 mmol/L (98-107) 12/28/19 10:41 Carbon Dioxide 20 mmol/L (22-30) L 12/28/19 10:41 Anion Gap 19 mmol/L 12/28/19 10:41 BUN 8 mg/dL (9-20) L 12/28/19 10:41 Creatinine 1.1 mg/dL (0.8-1.5) 12/28/19 10:41 Estimated GFR > 60 ml/min 12/28/19 10:41 BUN/Creatinine Ratio 7 % 12/28/19 10:41 Glucose 98 mg/dL (75-100) 12/28/19 10:41 Calcium 8.2 mg/dL (8.4-10.2) L 12/28/19 10:41 Phosphorus 2.70 mg/dL (2.5-4.5) 12/28/19 10:41 Magnesium 2.30 mg/dL (1.7-2.3) 12/28/19 10:41 NT-Pro-B Natriuret Pep 16.55 pg/mL (0-450) 12/25/19 20:32 Procalcitonin 0.09 ng/mL (<0.15) 12/27/19 07:14 Influenza A (Rapid) Negative (Negative) 12/25/19 23:00 Influenza B (Rapid) Negative (Negative) 12/25/19 23:00 Microbiology: Microbiology 12/25/19 20:32 Peripheral/Venous Blood Culture - Preliminary NO GROWTH AFTER 72 HOURS 12/25/19 20:32 Peripheral/Venous Blood Culture - Preliminary NO GROWTH AFTER 72 HOURS Franco/IV: Voiding Method Toilet IV Catheter Type [Left INT / Saline Lock Antecubital] Active Medications - Current Medications Current Medications: Generic Name Dose Route Start Last Admin Trade Name Freq PRN Reason Stop Dose Admin Acetaminophen 650 mg 12/25/19 23:44 Tylenol PO Q4H PRN Pain MILD(1-3)/Fever >100.5/SRIVASTAVA Azithromycin 500 mg 12/29/19 10:00 12/29/19 09:49 Zithromax PO 12/30/19 09:59 500 mg QDAY HUSSEIN Administration Heparin Sodium (Porcine) 5,000 unit 12/26/19 06:00 12/29/19 15:33 Heparin SUB-Q Not Given Q8HR HUSSEIN Sodium Chloride 1,000 mls @ 125 mls/hr 12/25/19 23:45 12/29/19 05:36 Nacl 0.9% 1000 Ml IV 125 mls/hr DIRECT HUSSEIN Administration Ceftriaxone Sodium 2 gm in 100 mls @ 200 mls/hr 12/26/19 10:00 12/29/19 09:49 Rocephin/Ns 2 Gm/100 Ml IV 200 mls/hr Q24HR HUSSEIN Administration Protocol Magnesium Hydroxide 30 ml 12/25/19 23:44 Milk Of Magnesia PO Q4H PRN Constipation Morphine Sulfate 2 mg 12/25/19 23:44 12/28/19 17:29 Morphine IV 2 mg Q4H PRN Administration Pain, Moderate (4-6) Ondansetron HCl 4 mg 12/25/19 23:44 Zofran IV Q8H PRN Nausea And Vomiting Sodium Chloride 10 ml 12/26/19 10:00 12/29/19 09:49 Sodium Chloride Flush Syringe 10 Ml IV 10 ml BID HUSSEIN Administration Sodium Chloride 10 ml 12/25/19 23:44 Sodium Chloride Flush Syringe 10 Ml IV PRN PRN LINE FLUSH
[2019-12-29] MEDS: MORPHINE 2 MG/1 ML INJ IV PRN (22:40)
[2019-12-30] MEDS: HEPARIN 5,000 UNIT/1 ML VIAL SUB-Q SCH ×2 (05:46→15:13)
[2019-12-30] MEDS: cefTRIAXone/NS 2 GM/100 ML 2 GM/100 ML BAG IV SCH (09:21)
--- NOTE | 2019-12-30 11:34 | Discharge Summary ---
Providers - Providers Date of Admission: 12/25/19 21:45 Date of discharge: 12/30/19 Attending physician: ALBERTO PATINO 12/25/19 23:44 Consult to Physician [CONS] Routine Comment: Consulting Provider: FAWAD HILL Physician Instructions: Reason For Exam: Pneumonia R/O Covid 19 Primary care physician: MACHINE MILKER Hospitalization Reason for admission: Fever, cough and bilateral pneumonia Condition: Stable Pertinent studies: Chest x-ray ;bilateral airspace disease suggestive of pneumonia Blood cultures; negative to date Hospital course: 34-year-old male presenting to the emergency room today complaining of cough and fever which has been ongoing for about 1 week. He was seen on outpatient basis about 6 days ago at [facility] and was diagnosed with pneumonia. Patient was not placed on hospital admission. 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 He has been having generalized aches and pain, denies any chest pain. He has had some nausea but no vomiting. No abdominal pain. In emergency room patient was found to be hypoxic with O2 saturation in the upper 80s. Work-up reveals bilateral pneumonia. He has been commenced on empiric IV antibiotics. High suspicion for Covid 9, admitted with contact and droplet isolation, evalua maegan by ID Covid 9 test was sent to the health department, pending report Meanwhile patient symptoms significantly improved Remains afebrile alert awake oriented, No new complaints Hemodynamically and clinically stable for discharge, Cleared by ID . Health department will contact the patient with call with report Patient advised to contact Department of Health if he has any questions or concerns I will check with primary care physician Discharge diagnosis and management Covid 19 survey was sent out to health department by pending report -- Bilateral pneumonia Current Visit: Yes Status: Acute Received total 5 days of IV antibiotics. As recommended by ID , cultures NGTD -- Suspected, r/o Covid 19 Current Visit: Yes Status: Acute ID evaluated the patient ,Covid test sent Pending report --Acute kidney injury; Current Visit: Yes Status: Acute Resolved --Hyponatremia; Current Visit: Yes Status: Acute Improved, monitor electrolytes, replacement therapy -- Hypoxia Current Visit: Yes Status: Acute Possibly secondary to the pneumonia. Will keep O2 saturation greater or equal to 92% --DVT prophylaxis Current Visit: Yes Status: Acute Patient placed on subcutaneous heparin --Full code status Current Visit: Yes Status: Acute Cleared by ID stable at discharge Healthcare department will reach out to you with the test report Or you can contact health department if you have any questions or concerns Disposition: DC-01 TO HOME OR SELFCARE Time spent for discharge: 32 min Core Measure Documentation - Palliative Care Palliative Care/ Comfort Measures: Not Applicable - Core Measures Any of the following diagnoses?: none Exam - Constitutional Vitals: Temp Pulse Resp BP Pulse Ox 97.6 F 61 18 140/89 96 12/30/19 05:24 12/30/19 05:24 12/30/19 05:24 12/30/19 05:24 12/30/19 05:24 General appearance: Present: no acute distress, well-nourished - EENT Eyes: Present: PERRL, EOM intact - Neck Neck: Present: supple, normal ROM - Respiratory Respiratory effort: normal Respiratory: bilateral: diminished, negative: rales, rhonchi, wheezing - Cardiovascular Rhythm: regular Heart Sounds: Present: S1 & S2 - Extremities Extremities: no ischemia, No edema - Abdominal General gastrointestinal: Present: soft, non-tender, non-distended, normal bowel sounds - Integumentary Integumentary: Present: clear, warm - Musculoskeletal Musculoskeletal: strength equal bilaterally, generalized weakness - Psychiatric Psychiatric: appropriate mood/affect, cooperative - Neurologic Neurologic: moves all extremities Plan Activity: advance as tolerated, other (Total 14days quarantine if Covid test is positive, no quarantine needed if covid 19 test is negative) Diet: regular Additional Instructions: patient should self-quarantine at home until COVID testing returns. If negative, self-quarantine may end. If positive patient should self-quarantine for 14 days from symptom beginning. Public health and infection prevention will follow up with patients to notify them of their test results. Patients should return to hospital regardless if they have worsening fevers or respiratory status. Advised to contact health department if you have any questions or concerns or contact MD. Wear mask, quarantining your room, frequent handwashing Follow up with: PRIMARY CARE,MD [Primary Care Provider] - 10 Days Prescriptions: Albuterol INH(or & Nicu Only) [ProAir HFA Inhaler] 1 puff IH QID PRN #8.5 gram PRN Reason: Shortness Of Breath Pantoprazole [Protonix TAB] 20 mg PO QDAY #14 tablet.
[2019-12-30 18:41] VITALS: BP 111/65
== END 2019-12-30 15:30 | disposition home or self-care (01) | DRG 871 ==
LOC: ED 19:45 → 3A 21:45
PROVIDERS: ADMIT Internal Medicine Geriatric Medicine; ATTEND Internal Medicine
DX: A41.9 Sepsis, unspecified organism (principal); J18.9 Pneumonia, unspecified organism; N17.0 Acute kidney failure with tubular necrosis; E87.1 Hypo-osmolality and hyponatremia; R06.00 Dyspnea, unspecified; R09.02 Hypoxemia; J45.909 Unspecified asthma, uncomplicated; Z20.828 Contact with and (suspected) exposure to other viral communicable diseases
CPT/HCPCS: 36415; 71045; 80048; 83735; 83880; 84100; 84145; 85025; 85610; 85730; 87040; 87400; 93005; 93010; 94760; 99291; G0378; J0456; J0696; J1644; J2270; J7030; J7050